=== PATIENT | male | born 1950 | race Caucasian/White ===

== ENCOUNTER → 2023-12-25 | Outpatient (CLI) | payer MEDICARE, BC, SELFPAY ==
--- NOTE | 2023-12-25 14:50 | CT_ITS ---
STUDY: CT CHEST WITH CONTRAST REASON FOR EXAM: Male, 73 years old. Paralysis of vocal cords and larynx, unilateral RADIATION DOSAGE (If Supplied By Facility): CTDIvol = ( 16.16 ) mGy, DLP = ( 705.79 ) mGycm TECHNIQUE: Transaxial imaging was performed following intravenous administration of IV 100mL Isovue-370. Multiplanar coronal and sagittal images were reformatted. Individualized dose optimization techniques were used for this CT. COMPARISON: No relevant priors. FINDINGS: CHEST Mild degree of emphysematous changes. There is no demonstrated pleural abnormality. There are calcifications of the coronary arteries. A left-sided dual-chamber pacemaker is seen. Normal mediastinum. Normal hilar regions. Normal unenhanced pulmonary arteries. There is atherosclerotic calcification of the aortic arch with tortuosity and elongation of the aortic arch and descending thoracic aorta. There are multi-level degenerative changes of the thoracic spine. Findings suggesting possible hemangioma of the mid and lower dorsal vertebrae. cardiac cord There is no demonstrated abnormality of the visualized upper abdomen. CT/Chest WITH Contrast IMPRESSION: Mild emphysematous changes. No acute abnormality is seen. Electronically Signed: Thom Garcia MD at 15:25 EST ,
--- NOTE | 2023-12-25 14:50 | CT_ITS ---
STUDY: CT SOFT TISSUE NECK WITH CONTRAST REASON FOR EXAM: Male, 73 years old. Paralysis of vocal cords and larynx, unilateral RADIATION DOSAGE (If Supplied By Facility): CTDIvol = ( 16.16 ) mGy, DLP = ( 705.79 ) mGycm TECHNIQUE: The patient was scanned in a multi-detector CT scanner. High resolution transaxial imaging was performed following intravenous administration of IV 100mL Isovue-370. Sagittal and coronal images were reconstructed. Individualized dose optimization techniques were used for this CT. COMPARISON: None. FINDINGS: Normal bilateral parotid glands. Normal bilateral anode rebuilder spaces. Normal bilateral parapharyngeal spaces. Normal bilateral carotid spaces. Atherosclerotic plaque formation of the carotid arteries and cavernous portions of the internal carotid arteries as well as the vertebral arteries bilaterally. Normal bilateral sublingual and submandibular glands and spaces. Normal visualized nasopharynx. Normal retropharyngeal space. Normal perivertebral space. Normal visualized bilateral faucial tonsils. The visualized tongue, tongue base and oropharynx are normal. The visualized cervical lymph nodes (levels I-) are within normal size limits, and maintain normal morphology. There is no demonstrated solid or cystic mass lesion. There is no abnormal contrast enhancement. Normal epiglottis, bilateral vallecula and hypopharynx. The pre-epiglottic and paraglottic adipose spaces are normal. Findings suggestive of a left vocal cord paralysis with the medial bowing. Normal subglottic trachea. Normal bilateral lobes of the thyroid gland. Normal visualized pulmonary apices. Normal visualized paranasal sinuses. Nasal septal deviation towards the right side of the midline. There is multilevel degenerative changes of the cervical spine. CT/Soft Tissue Neck WITH Contrast IMPRESSION: Findings in keeping with paralysis of the left vocal cord. Electronically Signed: Thom Garcia MD at 15:22 EST ,
[2023-12-25 15:07] LABS: CREATININE FINGERSTICK < 1.0 mg/dL (0.70-1.30); EGFR FINGERSTICK > 60.0000 mL/min (>60)
== END | disposition home or self-care (01) ==
LOC: CT 14:32
PROVIDERS: Referring Provider Otolaryngology; Visit Provider Otolaryngology
DX: J38.01 Paralysis of vocal cords and larynx, unilateral (principal)
CPT/HCPCS: 70491; 71260; Q9967

== ENCOUNTER → 2024-02-05 | Outpatient (CLI) | payer MEDICARE, BC, SELFPAY ==
[2024-02-05 16:16] LABS: Hematocrit 37.3 % (40-54); Hemoglobin 12.1 g/dL (13.0-16.5); Mean Corp Hgb Conc 32.4 g/dL (32-36); Mean Corpuscular Hgb 32.5 pg (27.0-32.0); Mean Corpuscular Volume 100.3 fL (80-94); Mean Platelet Vol. 10.6 fl (6.2-12.0); Platelet Count 158 K/mm3 (150-450); RBC Distribution Width CV 13.8 % (11.6-14.6); Red Blood Count 3.72 M/mm3 (4.6-6.2); White Blood Count 7.1 K/mm3 (4.4-11.0)
[2024-02-05 17:08] LABS: ALB/GLOB Ratio 1.2 RATIO (0.9-2.4); AST(SGOT) 46 U/L (15-37); Alanine Aminotransfer ALT/SGPT 62 U/L (16-61); Albumin, Serum 3.7 g/dL (3.2-5.0); Alkaline Phosphatase 69 U/L (45-117); Anion Gap 8 (5-15); BUN 25 mg/dL (7-18); BUN/Creat Ratio 27.4 RATIO (10-20); Calcium,Total 8.7 mg/dL (8.5-10.1); Chloride 103 mmol/L (98-107); Creatinine, Serum 0.91 mg/dL (0.70-1.30); EST Glomerular Filtration Rate 86 mL/min (>60); Est Glom Filt Rate - Afr Amer 104 mL/min (>60); Globulin 3.2 g/dL (2.2-4.2); Glucose 122 mg/dL (74-106); Potassium 4.1 mmol/L (3.5-5.1); Protein, Total 6.9 g/dL (6.4-8.2); Sodium Level 138 mmol/L (136-145)
== END | disposition home or self-care (01) ==
LOC: LAB 13:58
PROVIDERS: PCP Internal Medicine; Referring Provider Otolaryngology; Visit Provider Otolaryngology
DX: Z01.818 Encounter for other preprocedural examination (principal)
CPT/HCPCS: 36415; 80053; 85027

== ENCOUNTER 2024-02-09 06:25 | Day surgery (SDC) | payer MEDICARE, BC, SELFPAY ==
[2024-02-09] VITALS (10 sets, daily range): BP systolic 105–179; BP diastolic 48–76; PULSE 60–69; RESP 16–20; TEMP 35.9–36.8; O2SAT 91–99; BMI 24.0
--- OUTSIDE RECORDS SUMMARY | 2024-02-09 06:27 | XMS RPT_ITS | CCD ---
Author Name Unknown Address [address] [place] [address] Organization [facility] Care Team Providers Care Lead Systems Architect Name Role Phone Unavailable Primary Care Provider UnavailRick Mojica MD Unavailable [phone] DAYANA WOODSON Referring Unavailable RICK BELTRAN Referring Unavailable RICK BELTRAN Attending Unavailable LISSETTE REYES Referring Unavailable RICK BELTRAN Referring Unavailable RADHIKA REILLY Referring Unavailable YARELI KENNEDY Attending Unavailable Allergies Allergy Classification Reported Allergen(s) Allergy Type Date of Onset Reaction(s) Facility (8 sources) Codeine; Translations: [CODEINE] Drug Allergy 10-26-2010 [facility] Work Phone: Medications Completed/Discontinued Medications Medication Drug Class(es) Dates Sig (Normalized) Sig (Original) acetaminophen 500 mg oral tablet (5 sources) Start: 11-06-2019 take 2 tablets by mouth every six hours as needed acetaminophen (TYLENOL) 500 mg tablet Take 1,000 mg by mouth every 6 hours as needed. 0 11/06/2019 Active Problems Problem Classification Problem Date Documented Date Episodic/Chronic Cardiac dysrhythmias (1 source) Paroxysmal atrial fibrillation; Translations: [Paroxysmal A-fib (HCC)] Onset: 12-24-2023 Chronic Coronary atherosclerosis and other heart disease (1 source) Atherosclerotic heart disease of [place] coronary artery without angina pectoris; Translations: [Coronary artery disease, unspecified vessel or lesion type, unspecified whether angina present, unspecified whether [place] or transplanted heart] Onset: 12-24-2023 Chronic Other non-epithelial cancer of skin (2 sources) Intraepidermal squamous carcinoma of scalp; Translations: [Carcinoma in situ of skin of scalp and neck] Onset: 12-26-2023 12-26-2023 Episodic Unclassified (1 source) Acute cough; Translations: [Acute cough] Onset: 12-06-2023 Results Test Name Value Interpretation Reference Range Facil ity Vital Signs Date Time Vital Sign Value Performing Clinician Deniz lity 12-26-2023 11:19-0500 Diastolic blood pressure 49 mm[Hg] Yareli Kennedy MD Work Phone: [facility] 12-26-2023 11:19-0500 Heart rate 61 /min Yareli Kennedy MD Work Phone: [facility] 12-26-2023 11:19-0500 Systolic blood pressure 115 mm[Hg] Yareli Kennedy MD Work Phone: [facility] Encounters Encounter Date Encounter Type Care Provider Facility Start: 02-06-2024 End: 02-06-2024 ambulatory DAYANA CHINTAN Facility:[facility] Start: 01-22-2024 Follow-up encounter Rick axvier MD Work Phone: [facility] Start: 01-22-2024 Pacemaker Remote F/U Rick Zheng MD Work Phone: [facility] Department Start: 01-07-2024 E-mail encounter fro m caregiver Sanjay Ricci Ashley DO Work Phone: [facility] Start: 01-07-2024 Patient encounter procedure Sanjay Ramirez DO Work Phone: Cardiology Procedures Date Procedure Procedure Detail Performing Clinician Start: 01-22-2024 PACEMAKER REMOTE CHECK Rick Beltran MD Work Phone: Start: 07-14-2022 Lipid 1996 panel - S harvinder or Plasma Rick Beltran MD Work Phone: Plan of Treatment Date Care Activity Detail Author Start: 04-16-2028 Urine microalbumin profile DTa P,Tdap,Td Vaccine (3 - Td or Tdap) [facility] Start: 07-14-2027 Lipid panel Lipid Screening [facility] Start: 08-26-2026 Diabetes Screening Diabetes Screenin g [facility] Start: 06-21-2025 Pneumococcal Vaccine : 65+ (3 of 3 - PPSV23 or PCV20) Pneumococcal Vaccine: 65+ (3 of 3 - PPSV23 or PCV20) [facility] Start: 11-24-2023 Advance Directive Discussion Advance Directive Discussion [facility] Start: 11-24-2023 Depression Assessment Depression Ass essment [facility] Start: 07-25-2023 Covid-19 Vaccine ( season) Covid-19 Vaccine ( season) [facility] Start: 07-25-2023 Influenza vaccination Influenza Vacc ine (#1) [facility] Start: 11-24-2022 Advance Directive Discussion Advance Directive Discussion [facility] Start: 11-24-2022 Depression Assessment Depression Ass essment [facility] Start: 06-21-2021 Pneumococcal Vaccine : 65+ (4 of 4 - PPSV23 or PCV20) Pneumococcal Vaccine: 65+ (4 of 4 - PPSV23 or PCV20) [facility] Start: 10-26-2013 Diabetes Screening Diabetes Screenin g [facility] Start: 2013 Pneumococcal Vaccine : 65+ (1 - PCV) Pneumococcal Vaccine: 65+ (1 - PCV) [facility] Start: 2008 RSV Vaccine (1 - 1-d ose 60+ series) RSV Vaccine (1 - 1-dose 60+ series) [facility] Start: 1998 Shingrix Vaccine (1 of 2) Shingrix V accine (1 of 2) [facility] Start: 1993 Cologuard (FIT-DNA) Cologuard (FIT-D NA) [facility] Start: 1993 Colonoscopy Colonoscopy [facility] Start: 1993 Colorectal Cancer Screening Colorectal Cancer Screening [facility] Start: [address] COLONOGRAPHY [facility] Start: 1993 Fecal Occult Blood Fecal Occult Bloo d [facility] Start: 1993 Screening for malign ant neoplasm of colon [facility] Start: 1993 SIGMOIDOSCOPY SIGMOIDOSCOPY [facility] Start: 1983 Lipid 1996 panel - S harvinder or Plasma Lipid Screening [facility] Start: 1967 Shingrix Vaccine (1 of 2) Shingrix V accine (1 of 2) [facility] Start: 1967 Urine microalbumin profile DTa P,Tdap,Td Vaccine (1 - Tdap) [facility] Start: 1966 Hepatitis C Screening Hepatitis C [facility] Start: 1966 Hepatitis C screening Hepatitis C [facility] Start: 1948 Covid-19 Vaccine (#1) Covid-19 Vacci ne (#1) [facility] Payers Date Payer Category Payer Medicare [id number] 2013 Medicare MEDICARE MEDICAR E A AND B [id number] 2013-Present [phone] [place] [address] Medicare [id number] 2013 Medicare [id number] 2009 Unknown [id number] Social History Date Type Detail Facility Tobacco smoking stat [facility] Tobacco smoking consumption unknown [facility] Start: 1950 Sex Assigned At Not on file [facility] Start: 12-24-2023 End: 12-26-2023 Gender identity Not on file [facility] Start: 1950 Sex Assigned At Male C [facility] Start: 09-09-2023 Gender identity Identifies as male gender (finding) [facility] Start: 09-09-2023 Sexual orientation Heterosexual (fin annette) [facility] Start: 12-24-2023 Tobacco smoking stat RUSTIS Ex-smoker [facility] Work Phone: End: 11-24-1967 History of tobacco use Current smoker [facility] Work Phone: End: 11-24-1967 History of tobacco use Cigarette Smoker [facility] Work Phone: History of tobacco use Passive smoker [facility] Work Phone: Start: 12-24-2023 Tobacco use and exposure Smokeless tobacco non-user [facility] Work Phone: Start: 12-26-2023 Alcohol intake Ex-drinker (finding) [facility] Start: 12-24-2023 End: 12-26-2023 History of Social function [facility] National Score (1-10 0), lower number is lower risk 60 [facility] Clinical Notes 09-01-2023 to 12-30-2023 Telephone Encounter - Marbella Acuña - 12/30/2023 2:34 PM ESTPatient InstructionsTelephone Encounter - Kelsy Rashid - 12/26/2023 12:21 PM EST Note Date & Type Note Facility 12-30-2023 Miscellaneous Notes Outside EP. Dental Clearance. I have a copy @ my desk. Marbella Acuña documented in this encounter [facility] 12-26-2023 Instructions Patricia Henry RN - 12/26/2023 1:28 PM EST WOUND CARE INSTRUCTIONS FOR SECONDARY INTENTION HEALING WOUND CARE: The dressing you have been sent home with is called a pressure dressing. It should remain in place for 72 hours. To care for the wound: Remove pressure dressing after 72 hours. Tip: wet dressing in the shower to assist with adhesive removal. You can remove adhesive with soap, water, or alcohol pad. Clean with soap and water twice daily. After wound is thoroughly cleansed and dried, apply a thick layer of Bactroban/Mupirocin around the edge and in the wound. Do NOT use polysporin or neosporin Cover surgical site until healed with a bandage For legs and scalps, this may be 8 weeks or longer A type of packing called Gelfoam may be placed in the wound before you go home if so: Please leave the packing in place. Continue to do wound care above packing. The Gelfoam will dissolve and fall out over the course of a few days. Signs and symptoms of infection: Redness streaking away from the wound, swelling, new onset of pain, foul smelling drainage, pus, and generalized fevers/chills BLEEDING: Careful attention has been given to your wound to prevent bleeding. The initial dressing you have on is a pressure dressing to also help prevent bleeding. You may notice a small amount of blood on the edges of the dressing the first day; this is normal. In case of persistent bleeding: Apply firm, steady pressure over the dressing with gauze for 20 minutes. If bleeding persists, please apply pressure for another 30 minutes. Tip #1: use a timer to record the time of pressure held Tip #2: do not peek at wound until time is completed- this will disrupt clotting time of vessel Tip #3: you may also use ice, as this may aid in slowing any bleeding. 2. If bleeding persists, please call the office using the numbers below. We will instruct you on how to proceed. 3. The wound may drain heavily during the first few days. If so, please change the dressing more frequently. If the wound becomes inflamed, painful, or has a foul odor, please contact the Dermatology Department immediately PAIN: What pain can I expect after surgery? You can expect to have some pain after surgery. This is normal. The pain is typically worse for a day or two after surgery, and quickly begins to get better. Most patients are able to manage their pain after surgery with Kgxy-xkr-Iuitjtv (OTC) medications such as Tylenol (acetaminophen) and Motrin/Advil (ibuprofen). If you have a condition that does not allow you to take either of these medications, please notify us immediately. How will I manage my pain? The best strategy for controlling your pain after surgery is around the clock pain control with Tylenol (acetaminophen) and Motrin/Advil (ibuprofen). Alternating these medications with each other allows you to maximize your pain control. In addition to Tylenol and Motrin, you can use ice packs on your incisions for 20 minutes each hour for the first two days after surgery to help reduce your pain and swelling. After the first two days, you may use a heating pad or warm compress on your incisions and surrounding area. If you have received a graft, please *DO NOT* apply ice directly onto the graft site. How will I alternate my regular strength gbov-cet-slzihxz pain medication? You will take a dose of pain medication every four hours while you're awake. Start by taking 200-400 mg of Motrin/Advil (ibuprofen) (1-2 pills of 200 mg) 4 hours later, take 500-1000 mg of Tylenol (acetaminophen) (1-2 pills of 500 mg) 4 hours later, take 200-400 mg of Motrin/Advil (ibuprofen) (1-2 pills of 200 mg) 4 hours later, take 500-1000 mg of Tylenol (acetaminophen) (1-2 pills of 500 mg) 4 hours later, take 200-400 mg of Motrin/Advil (ibuprofen) (1-2 pills of 200 mg) We recommend that you follow this schedule sruabo-rxq-yassg for at least 3 days after surgery, or until you feel that it is no longer needed. As an alternative, you can purchase OTC Advil Dual Action, which is a combined pill containing Acetaminophen 250mg and Ibuprofen 125mg. IMPORTANT: Do not take more than 3000mg of Tylenol (acetaminophen) or 3200mg of Motrin/Advil (ibuprofen) in a 24-hour period. Be aware that some chronic pain medications as well as over the counter cold and flu remedies may also contain acetaminophen. Take this into consideration to avoid exceeding the maximum daily dose. Limit alcohol intake. It is recommended to avoid heavy alcohol intake (more than two standard drinks per day for men and one standard drink for women) after surgery and while taking acetaminophen. Drinking alcohol causes the liver to convert more of the acetaminophen you take into toxic byproducts. Alcohol also acts as a blood thinner and can increase your risk for post-operative bleeding. Continue to take all of your prescribed medication. SWELLING: Swelling after surgery is normal and can peak at 48hr after surgery Suggestion: sleep on 1-2 pillows post procedure for 2-3 days to minimize swelling You can do this if you had a procedure on your face, top of head, ears, jaw, eyes, nose, cheeks, etc. Elevate arms and legs at rest to decrease swelling You can wrap your affected extremity by using YEFRI wrap, coban wrap, or compression stockings to also minimize swelling Please also use ice to decrease swelling. Can use approximately 20 minutes each hour. NOTES: You may have a low-grade fever (99-100 degrees F) for which Tylenol may be used. You may shower regularly after your initial surgery dressing is removed. Continue daily wound care. Return to referring elevator conductor for skin checks every 6 months PHONE NUMBERS: [place] contact number: [phone], [phone], or [phone] (Friday-Friday, 8am-5pm) For emergencies only: On-call number: [phone] and ask for the representative government relations dermatology surgery fellow documented in this encounter [facility] 12-26-2023 Note HNO ID: [id number] Author: YARELI KENNEDY MD Service: ? Author Type: Physician Type: Progress Notes Filed: 01/01/2024 15:16 Note Text: DERMATOLOGY CONSULT FOR MOHS SERVICE DATE: 12/26/2023 PRIMARY CARE PHYSICIAN: No primary care provider on file. REFERRING PROVIDER: Caity Matthews MD [place] [phone] Consultation requested for an opinion regarding the evaluation and treatment of skin cancer. My final impression and recommendations will be communicated back to the requesting physician by way of the shared medical record or letter via [place] mail. SUBJECTIVE CHIEF COMPLAINT: SCC HISTORY OF PRESENT ILLNESS BIOPSY INFORMATION: 1. 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 Report Number: Outside Pathology [id number] Date Performed: 08-25-23 Performed By: Outside Provider Past Treatment: No Past Treatment Tumor Type: Primary Present For: 1 years(s) Signs AND Symptoms: scabbing and bleeding PAST DERM HISTORY: SCC BCC FAMILY HISTORY: Non-Melanoma Skin Cancer PAST MEDICAL HISTORY Diagnosis Date Atrial fibrillation (HCC) CAD (coronary artery disease) Crohn's disease (HCC) Diffuse large B cell lymphoma (HCC) History of deep vein thrombosis HLD (hyperlipidemia) HTN (hypertension) NSTEMI (non-ST elevated myocardial infarction) (HCC) 10/2019 Seizure disorder (HCC) PAST SURGICAL HISTORY Procedure Laterality Date ANESTH,PACEMAKER INSERTION 05/24/2020 CABG (2) VEIN GRAFTS AND ARTERIAL GRAFT(S 10/2019 PAST SURGICAL HISTORY OF surgery for Crohn's TOTAL HIP REPLACEMENT Right Social History Tobacco Use Smoking status: Former Types: Cigarettes Quit date: 1968 Years since quittin.1 Passive exposure: Past Smokeless tobacco: Never Vaping Use Vaping Use: Never used Substance Use Topics Alcohol use: Not Currently Drug use: Never FAMILY HISTORY Problem Relation Age of Onset Emphysema Mother Cancer Father ALLERGIES Allergen Reactions Codeine Rash MEDICATIONS: metoprolol succinate ER (TOPROL XL) 25 mg 24 hr tablet Take 1 tablet by mouth once daily. acetaminophen (TYLENOL) 500 mg tablet Take 1,000 mg by mouth every 6 hours as needed. adalimumab (HUMIRA) 40 mg/0.8 mL injection Inject 40 mg subcutaneously one time a week. allopurinol (ZYLOPRIM) 300 mg tablet Take 1 tablet by mouth every afternoon. amiodarone (PACERONE) 200 mg tablet Take 0.5 tablets by mouth every afternoon. aspirin 81 mg chewable tablet Take 81 mg by mouth once daily. atorvastatin (LIPITOR) 20 mg tablet Take 20 mg by mouth daily at bedtime. cholecalciferol (VITAMIN D3) 1,000 unit tab tablet Take 25 mcg by mouth. CHOLESTYRAMINE LIGHT 4 gram packet MIX AND DRINK 1 PACKET BY MOUTH TWICE DAILY WITH MEALS cyanocobalamin 1,000 mcg/mL INJECT 1ML UNDER THE SKIN ONCE A MONTH dutasteride (AVODART) 0.5 mg capsule Take 1 capsule by mouth every afternoon. furosemide (LASIX) 20 mg tablet Take 20 mg by mouth once daily. isosorbide mononitrate ER (IMDUR) 60 mg 24 hr tablet Take 1 tablet by mouth every afternoon. levETIRAcetam (KEPPRA) 500 mg tablet Take 1 tablet by mouth every 12 hours. nitroglycerin sublingual (NITROQUICK) 0.4 mg SL tablet Dissolve 0.4 mg under the tongue. XARELTO 20 mg tablet Take 20 mg by mouth daily with dinner. tamsulosin (FLOMAX) 0.4 mg Take 2 capsules by mouth every afternoon. ANTICOAGULANTS: ASA Xarelto PT INR Date Value Ref Range Status 10/26/2010 1.07 Final Comment: PT REAGENT WITH CARMEN CLOSE TO 1.0 IN USE. INR MUST BE USED IN MONITORING THERAPY. MEDICAL CONDITIONS: Heart Disease, Hypertension IMPLANTED DEVICES: Pacemaker and Artificial Joints- right hip TRANSPLANT PATIENT: No OBJECTIVE REVIEW OF SYSTEMS: Patient denies fatigue, fever, weight loss, shortness of breath and chest pain. ASSESSMENT PHYSICAL EXAM There were no vitals taken for this visit. GENERAL: Well developed, well nourished. No acute distress. Pleasant and cooperative. No Fatigue or malaise. SKIN: erythematous, irregular crusted plaque on vertex scalp PHOTOS: Photos taken with consent. PLAN IMPRESSION: The etiology, prognosis, and diagnosis of the skin cancer was discussed with the patient. Various treatment options were reviewed, including, but not limited to electrodessication and curretage, excision, radiation treatment, frozen sections and Mohs surgery. Risks, benefits and alternatives discussed with the patient, including but not limited to bleeding, infection, nerve damage, damage to underlying structures, wound dehiscence, scarring and recurrence. The patient was given opportunity to ask questions, consents to treatment, and agrees to proceed the following treatment plan. 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 [facility] 12-26-2023 Miscellaneous Notes Patient returned call scheduled and scheduled for 02/12/24 with echo prior to visit and completing labs. Please advise patient if any further testing is needed prior to visit. First attempt at contacting patient, left VM to schedule new patient appt with strip mine supervisor in [place] ----- Message from Rick Beltran MD sent at 12/24/2023 4:24 PM EST ----- want to get this pt established with cardiology - Efraín ramirez or Enriqueta for h/o CAD s/p CABG and an iCM - last EF 30%. Just moved to [place] Needs updated TTE before or near the time of the visit. Order in Elic thanks Rick documented in this encounter [facility] 12-26-2023 History of Present illness Narrative DERMATOLOGY CONSULT FOR MOHS SERVICE DATE: 12/26/2023 PRIMARY CARE PHYSICIAN: No primary care provider on file. REFERRING PROVIDER: Caity Matthews MD [facility] [address] [address] Consultation requested for an opinion regarding the evaluation and treatment of skin cancer. My final impression and recommendations will be communicated back to the requesting physician by way of the shared medical record or letter via [place] mail. SUBJECTIVE CHIEF COMPLAINT: SCC HISTORY OF PRESENT ILLNESS BIOPSY INFORMATION: 1. 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 Report Number: Outside Pathology [id number] Date Performed: 08-25-23 Performed By: Outside Provider Past Treatment: No Past Treatment Tumor Type: Primary Present For: 1 years(s) Signs & Symptoms: scabbing and bleeding PAST DERM HISTORY: SCC BCC FAMILY HISTORY: Non-Melanoma Skin Cancer PAST MEDICAL HISTORY Diagnosis Date Atrial fibrillation (HCC) CAD (coronary artery disease) Crohn's disease (HCC) Diffuse large B cell lymphoma (HCC) History of deep vein thrombosis HLD (hyperlipidemia) HTN (hypertension) NSTEMI (non-ST elevated myocardial infarction) (HCC) 10/2019 Seizure disorder (HCC) PAST SURGICAL HISTORY Procedure Laterality Date ANESTH,PACEMAKER INSERTION 05/24/2020 CABG (2) VEIN GRAFTS & ARTERIAL GRAFT(S 10/2019 PAST SURGICAL HISTORY OF surgery for Crohn's TOTAL HIP REPLACEMENT Right Social History Tobacco Use Smoking status: Former Types: Cigarettes Quit date: 1968 Years since quittin.1 Passive exposure: Past Smokeless tobacco: Never Vaping Use Vaping Use: Never used Substance Use Topics Alcohol use: Not Currently Drug use: Never FAMILY HISTORY Problem Relation Age of Onset Emphysema Mother Cancer Father ALLERGIES Allergen Reactions Codeine Rash MEDICATIONS: metoprolol succinate ER (TOPROL XL) 25 mg 24 hr tablet Take 1 tablet by mouth once daily. acetaminophen (TYLENOL) 500 mg tablet Take 1,000 mg by mouth every 6 hours as needed. adalimumab (HUMIRA) 40 mg/0.8 mL injection Inject 40 mg subcutaneously one time a week. allopurinol (ZYLOPRIM) 300 mg tablet Take 1 tablet by mouth every afternoon. amiodarone (PACERONE) 200 mg tablet Take 0.5 tablets by mouth every afternoon. aspirin 81 mg chewable tablet Take 81 mg by mouth once daily. atorvastatin (LIPITOR) 20 mg tablet Take 20 mg by mouth daily at bedtime. cholecalciferol (VITAMIN D3) 1,000 unit tab tablet Take 25 mcg by mouth. CHOLESTYRAMINE LIGHT 4 gram packet MIX AND DRINK 1 PACKET BY MOUTH TWICE DAILY WITH MEALS cyanocobalamin 1,000 mcg/mL INJECT 1ML UNDER THE SKIN ONCE A MONTH dutasteride (AVODART) 0.5 mg capsule Take 1 capsule by mouth every afternoon. furosemide (LASIX) 20 mg tablet Take 20 mg by mouth once daily. isosorbide mononitrate ER (IMDUR) 60 mg 24 hr tablet Take 1 tablet by mouth every afternoon. levETIRAcetam (KEPPRA) 500 mg tablet Take 1 tablet by mouth every 12 hours. nitroglycerin sublingual (NITROQUICK) 0.4 mg SL tablet Dissolve 0.4 mg under the tongue. XARELTO 20 mg tablet Take 20 mg by mouth daily with dinner. tamsulosin (FLOMAX) 0.4 mg Take 2 capsules by mouth every afternoon. ANTICOAGULANTS: ASA Xarelto PT INR Date Value Ref Range Status 10/26/2010 1.07 Final Comment: PT REAGENT WITH CARMEN CLOSE TO 1.0 IN USE. INR MUST BE USED IN MONITORING THERAPY. MEDICAL CONDITIONS: Heart Disease, Hypertension IMPLANTED DEVICES: Pacemaker and Artificial Joints- right hip TRANSPLANT PATIENT: No OBJECTIVE REVIEW OF SYSTEMS: Patient denies fatigue, fever, weight loss, shortness of breath and chest pain. ASSESSMENT PHYSICAL EXAM There were no vitals taken for this visit. GENERAL: Well developed, well nourished. No acute distress. Pleasant and cooperative. No Fatigue or malaise. SKIN: erythematous, irregular crusted plaque on vertex scalp PHOTOS: Photos taken with consent. PLAN IMPRESSION: The etiology, prognosis, and diagnosis of the skin cancer was discussed with the patient. Various treatment options were reviewed, including, but not limited to electrodessication and curretage, excision, radiation treatment, frozen sections and Mohs surgery. Risks, benefits and alternatives discussed with the patient, including but not limited to bleeding, infection, nerve damage, damage to underlying structures, wound dehiscence, scarring and recurrence. The patient was given opportunity to ask questions, consents to treatment, and agrees to proceed the following treatment plan. 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 Mohs closure types were discussed with patient. May consider primary, 2nd intention, or purse- string closure closure. Indications for Mohs Surgery include: Anatomic Location where lesion is prone to recur, Type of tumor, and Ill-defined borders Mohs AUC Score is 7-9 = Appropriate [X] Wound care instructions given. The documentation for this note was completed by Patricia Henry RN acting as scribe for Yareli Kennedy MD. December 26, 2023 11:17 AM. SIGNATURE: Yareli Kennedy MD PATIENT NAME: Pavel Quiñones DATE: December 26, 2023 TIME: 1:44 PM PAGER/CONTACT #: [id number] MICROGRAPHIC OPERATIVE REPORT SERVICE DATE: 12/26/2023 SERVICE TIME: 11:17 AM LOCATION: { [place]:[facility] REFERRING PROVIDER: Radhika Reilly [address] [facility] [id number] PROCEDURE START TIME: 1130 am PROCEDURE END TIME: 1:50 PM SURGEON: Dr. Yareli Kennedy FELLOW: Dr. Stephy Sharpe REGISTERED NURSE: Patricia Henry RN ANTICOAGULANTS: ASA Xarelto IMPLANTED DEVICES: Pacemaker and Artificial Joints- right hip replaced 12 years ago ANTIBIOTIC PROPHYLAXIS: Not required TRANSPLANT PATIENT: No PHOTOS: Photos taken VERIFICATION OF PROCEDURE: Procedure to be Performed: Mohs Surgery Patient Verified By: Name and Date of Site(s) Confirmed: Patient confirmed site from image in the EMR. Patient verbalized agreement of surgical site(s). Site(s) Marked: Provider marking the site with patient involvement. Relevant documentation, images, implants or special equipment present: Yes SIGN IN COMMUNICATION: Completed Time Out: Team Confirms the Correct Patient, Correct Procedure, Correct Site(s) and Site Marked, Correct Position (if applicable). Time: 1146 am Affirmation of Time Out: Yes Sign out Discussion: Completed UNIVERSAL PROTOCOL / SAFETY CHECKLIST Procedure to be Performed: mohs Sign In: A Moment of CARE was completed. Personnel directly involved with the procedure wore the appropriate PPE (Personal Protective Equipment). Patient/Surrogate Stated/Verified: PATIENT VERIFIED(optional for EMERGENT procedures): Patient name, Date of , Relevant allergies, and The intended procedure Time Out Communication: Intended patient and procedure match the source documents. Consent documented and matches the intended procedure. Sign Out: SIGN OUT (optional for EMERGENT procedures): All specimen containers correctly labeled. Post-procedure follow-up management communicated and Plan of Care Visit completed when applicable. 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 Anesthesia was obtained with local infiltration. The clinically apparent tumor was then debulked with a curette. A 1-2 mm rim of tissue was marked circumferentially around the defect. The area thus outlined was excised deep to the subcutis. Hemostasis was achieved with electrocautery. The specimen was oriented, subdivided into 2 sections, chromacoded and submitted for horizontal frozen sections. The patient tolerated the procedure well and no complications were noted. Upon review of the horizontal frozen sections for Layer A, no residual tumor was identified . Pt will follow up with efudex to scalp once healed CLOSURE Rationale for Second Intention Healing: Given the large size and superficial nature of the defect, the defect was allowed to heal by secondary intent. A running locked 5-0 fast suture was placed around the periphery to minimize bleeding and shrink the defect by appx 20% Diagnosis: Surgical defect secondary to Mohs micrographic surgery on a Primary tumor type from right vertex (location of tumor). Post-op Defect Size: 2.3 x 3.2cm PARTIAL CLOSURE: Given the lack of redundant tissue surrounding the defect, part of the wound was allowed to heal by secondary intention. Part of the wound was closed with a running locked suture to peripheral edges and wound base. The wound edges were secured with 5-0 Absorbable running locked sutures Final Size: 3 x 1.7 cm 2 SCC Staging In situ LOCAL ANESTHETIC: 5cc 1% Lidocaine HCl with Epinephrine 1:100,000 and 2cc 0.5% Bupivacaine HCl ESTIMATED BLOOD LOSS: Less Than Minimal Unless Noted Here. COMPLICATIONS: None, patient tolerated procedure well. TOTAL OPERATIVE TIME: 140 Minutes POST OP MEDS: Tylenol 1000 mg every 8 hours as needed for pain relief Mupirocin ointment POST OP CARE: Pressure Dressing applied consisting of Contact Layer: Antibiotic ointment, Non stick Telfa pad, and gelfoam to wound base Absorbent Layer: Gauze pad Liquid Adhesive to surrounding skin to adhere dressing. Outer Layer: Hypafix MOHS POST OP INSTRUCTIONS GIVEN WITH VERBAL UNDERSTANDING: Yes PATIENT DISCHARGED TO CREATIVE RECRUITER/NAME: spouse FOLLOW UP: 3 weeks e- visit and 6 week post op to prescribe Efudex The documentation for this note was completed by Patricia Henry RN acting as scribe for Yareli Kennedy MD. December 26, 2023 1:55 PM. I served as the fellow in this case under supervision of the attending surgeon. I prepped the patient and interpreted the slides. I took the Mohs layer Stephy Sharpe MD Micrographic Surgery & Dermatologic Oncology Fellow Fellow took the layer(s), under direct supervision and the remainder of the procedure was performed by the primary surgeon/proceduralist with assistance. I/primary surgeon/proceduralist reviewed the specimen(s) and worked as the pathologist. I have seen and examined Pavel Quiñones. I have discussed the case and the management of this patient's care with the Fellow. I also have reviewed and agree with the assessment and plan as stated above and agree with all of its relevant components. I was present for and supervised the procedures as documented above by the Fellow. I was physically present during the critical portion(s) of this procedure. I agree with the operative note independently gathered by the clinical desktop support associate and the remaining scribed note accurately describes my personal service to the patient. I/primary surgeon/proceduralist reviewed the specimen(s) and worked as the pathologist. Yareli Kennedy MD January 01, 2024 Yareli Kennedy MD documented in this encounter [facility] 12-24-2023 Note HNO ID: [id number] Author: RICK BELTRAN MD Service: ? Author Type: Physician Type: Progress Notes Filed: 12/24/2023 18:19 Note Text: [facility] Department of Cardiovascular Medicine SECTION OF CARDIAC PACING and ELECTROPHYSIOLOGY OUTPATIENT VISIT DATE December 24, 2023 OUTPATIENT VISIT TYPE NEW PRIMARY CARE PHYSICIAN: To use this Smartlink, specify the provider ID whose address you want to display, e.g., .PROVADDR[1 (where 1 is the provider ID). REFERRING PHYSICIAN: Lissette Reyes MD [address] [place] [id number] NURSING INTAKE HISTORY: Mr. Quiñones is a 73 year old male who presents today for evaluation of atrial fibrillation. He has a past medical history of NSTEMI 10/2019, CAD s/p CABG x 2 10/2019, Crohn's disease, diffuse large B-cell lymphoma, hypertension, hyperlipidemia, lone seizure x 1, DVT s/p inferior vena cava filter, s/p PPM 05/24/20, and AF s/p DCC's x 6. He had an NSTEMI in October 2019 and underwent CABG and EVE 2 days later. He developed postoperative atrial fibrillation which was newly diagnosed. Per outside notes, AF was challenging to control, and he underwent 5 cardioversions over the next 5-6 months. He was started on amiodarone during that time period. Review of outside records indicate he underwent pacemaker implant 05/24/2020 because AF was difficult to control. He did well without recurrence, maintained on amiodarone, until 08/2023. He has never had an ablation. He had persistent AF starting late May 2023 in the setting of a viral illness. He underwent LUIS-guided DCC 08/2023. He had increased leg swelling and in August 2023 and had an echo, which showed EF decreased to 35%, with severe TR, moderate to severe MR, and Severe bi-atrial enlargement. Previous echo 09/2022 showed normal LVEF. He is maintained on amiodarone 100 mg daily, metoprolol, and Xarelto. He moved to [facility] in September to be closer to children. He has not recurrent AF since the DCC. He feels poorly overall since August 2023, with weakness in legs, fatigued and low energy, some ARROYO. He never had a sleep study. He is active around the house. Patient denies chest pain, orthopnea, cough, edema, palpitations, PND, dizziness, lightheadedness, nearsyncope, or syncope. [id number] score: 5 (congestive heart failure, hypertension, age >/=75, vascular disease) - on Xarelto DUAL LEAD PACEMAKER EVALUATION PRESENTS FOR: OPD with Dr. Beltran, new to [facility] device clinic PRESENTING EGM: AP/VS UNDERLYING RHYTHM: Sinus Bradycardia with PVC. BATTERY STATUS: Estimated time remaining to POWER is 10.5 years. COUNTERS SINCE: 09/17/23 (interrogated back further) ATRIAL ARRHYTHMIAS: There were several triggered episodes of atrial high rates dated on 07/01 and 07/02 with EGMs showing AFL/AF. Per AT/AF burden graph, patient was in AF 100% of the time June-August to which patient said he had a local DCCV. Total time <0.1%. Anticoagulants listed: Xarelto VENTRICULAR ARRHYTHMIAS: There has been 1 nsVT detection confirmed by EGM within the last year. LEAD MEASUREMENTS: Capture and sensing are appropriate. The pacing outputs maintain safety margin. Review of the lead impedance trends are normal. IMPLANT SITE/ SYMPTOMS: The incision and pocket are pain-free (0/10), well healed and without signs of erosion or infection. No arm swelling, syncope, pre-syncope or device related pocket stimulation. OTHER DIAGNOSTICS: RA pacing 95.3%, Total V pacing 0.3% PROGRAMMING CHANGES MADE TODAY: None. FOLLOW UP: Request sent to patient's local clinic to release remotes. Patient wishes to follow at [facility]. Caity Stevenson RN PAST MEDICAL HISTORY Diagnosis Date Atrial fibrillation (HCC) CAD (coronary artery disease) Crohn's disease (HCC) Diffuse large B cell lymphoma (HCC) History of deep vein thrombosis HLD (hyperlipidemia) HTN (hypertension) NSTEMI (non-ST elevated myocardial infarction) (HCC) 10/2019 Seizure disorder (HCC) PAST SURGICAL HISTORY Procedure Laterality Date ANESTH,PACEMAKER INSERTION 05/24/2020 CABG (2) VEIN GRAFTS AND ARTERIAL GRAFT(S 10/2019 PAST SURGICAL HISTORY OF surgery for Crohn's TOTAL HIP REPLACEMENT Right SOCIAL HISTORY Social History Tobacco Use Smoking status: Former Types: Cigarettes Quit date: 1968 Years since quittin.1 Passive exposure: Past Smokeless tobacco: Never Vaping Use Vaping Use: Never used Substance Use Topics Alcohol use: Not Currently Drug use: Never FAMILY HISTORY Problem Relation Age of Onset Emphysema Mother Cancer Father ALLERGIES: ALLERGIES Allergen Reactions Codeine Rash MEDICATIONS: acetaminophen (TYLENOL) 500 mg tablet Take 1,000 mg by mouth every 6 hours as needed. adalimumab (HUMIRA) 40 mg/0.8 mL injection Inject 40 mg subcutaneously one time a week. allopurinol (ZYLOPRIM) 300 mg tablet Take 1 tablet by mouth every afternoon. ami (more content not included)... [facility] 12-10-2023 Note HNO ID: [id number] Author: OSMEL HERRERA APRN.AUTO DAMAGE TRAINEE Service: ? Author Type: Nurse Practitioner Type: Progress Notes Filed: 12/10/2023 16:01 Note Text: This note was created using [employer]. Subjective Pavel Quiñones is a 73 year old male. 73 year old male with PMH of atrial fibrillation, pneumonia in September 2023, and Chron's disease on Humira. Presents today with acute onset cough, rhinorrhea, and sore throat for two weeks. Pertinent positives include productive cough with thick clear sputum, sore throat worse with swallowing, rhinorrhea with clear drainage, chest tightness with cough, hoarse voice for 2 weeks, and SOB resolved with albuterol inhaler BID which he was prescribed in September when he had pneumonia. Pertinent negatives include fever, fatigue, decreased appetite, nausea, vomiting, diarrhea, ear drainage, and eye drainage. He was seen here a few days RESPIRATORY ASSISTANT for same Just still here The history is provided by the patient. Cough This is a new problem. The current episode started more than 1 week ago. The problem occurs constantly. The problem has been gradually worsening. The cough is Productive of sputum (clear thick). There has been no fever. Associated symptoms include weight loss, rhinorrhea, sore throat and shortness of breath. Pertinent negatives include no chest pain, no chills, no ear congestion, no ear pain, no myalgias and no wheezing. Associated symptoms comments: Has lost 8 pounds in the last 2 months but believes this is due to the business of his life lately. Treatments tried: salt water gargles. The treatment provided no relief. He is not a smoker. His past medical history is significant for pneumonia. His past medical history does not include bronchitis, COPD, emphysema or asthma. Was seen in [facility] 5 days ago which he was diagnosed with bacterial sinusitis and prescribed doxycycline. He has been taking this for 5 days. No past medical history on file. No past surgical history on file. ALLERGIES Codeine MEDICATIONS acetaminophen (TYLENOL) 500 mg tablet Take 1,000 mg by mouth every 6 hours as needed. adalimumab (HUMIRA) 40 mg/0.8 mL injection Inject 40 mg subcutaneously. albuterol HFA (PROVENTIL HFA, VENTOLIN HFA) 90 mcg/actuation inhaler Inhale 2 Puffs as instructed. allopurinol (ZYLOPRIM) 300 mg tablet Take 1 tablet by mouth every afternoon. amiodarone (PACERONE) 200 mg tablet Take 0.5 tablets by mouth every afternoon. aspirin 81 mg chewable tablet Take 81 mg by mouth. atorvastatin (LIPITOR) 20 mg tablet Take 20 mg by mouth daily at bedtime. cholecalciferol (VITAMIN D3) 1,000 unit tab tablet Take 25 mcg by mouth. CHOLESTYRAMINE LIGHT 4 gram packet MIX AND DRINK 1 PACKET BY MOUTH TWICE DAILY WITH MEALS cyanocobalamin 1,000 mcg/mL INJECT 1ML UNDER THE SKIN ONCE A MONTH dutasteride (AVODART) 0.5 mg capsule Take 1 capsule by mouth every afternoon. ergocalciferol 50,000 unit capsule (VITAMIN D2, DRISDOL) Take 50,000 Units by mouth one time a week. furosemide (LASIX) 20 mg tablet isosorbide mononitrate ER (IMDUR) 60 mg 24 hr tablet Take 1 tablet by mouth every afternoon. levETIRAcetam (KEPPRA) 500 mg tablet Take 1 tablet by mouth every 12 hours. metoprolol succinate ER (TOPROL XL) 25 mg 24 hr tablet nitroglycerin sublingual (NITROQUICK) 0.4 mg SL tablet Dissolve 0.4 mg under the tongue. XARELTO 20 mg tablet Take 20 mg by mouth daily with dinner. sildenafil (VIAGRA) 100 mg tablet Take 100 mg by mouth at bedtime as needed. tamsulosin (FLOMAX) 0.4 mg Take 2 capsules by mouth every afternoon. doxycycline (VIBRA-TABS) 100 mg tablet Take 1 tablet by mouth two times a day for 7 days. predniSONE (DELTASONE) 10 mg tablet Take 4 tabs daily for 3 days, then 2 tabs daily for 3 days, then 1 tab daily for 3 days with food. LAMICTAL 25 mg ORAL tablet take as instructed up to 100 mg twice a day (Patient not taking: Reported on 12/06/2023) LAMICTAL 100 mg ORAL tablet take as instructed up to 100 mg twice a day (Patient not taking: Reported on 12/06/2023) No family history on file. Social History Tobacco Use Smoking status: Former Types: Cigarettes Passive exposure: Past Smokeless tobacco: Never Review of Systems Constitutional: Positive for weight loss. Negative for appetite change, chills, fatigue, fever and unexpected weight change. HENT: Positive for congestion, rhinorrhea and sore throat. Negative for ear discharge, ear pain, sinus pressure and sinus pain. Eyes: Negative for discharge. Respiratory: Positive for cough, chest tightness and shortness of breath. Negative for wheezing and stridor. Cardiovascular: Negative for chest pain. Gastrointestinal: Negative for abdominal pain, diarrhea, nausea and vomiting. Musculoskeletal: Negative for arthralgias and myalgias. Objective BP 104/68 Pulse 80 Temp 36.1 ?C (96.9 ?F) Resp 21 Wt 74.1 kg (163 lb 6.4 oz) SpO2 99% Physical Exam Constitutional: General: (more content not included)... [facility] 12-06-2023 Note HNO ID: [id number] Author: CHECO KELLEY RT(R) Service: ? Author Type: Bleaching Machine Operator Type: Progress Notes Filed: 12/06/2023 11:27 Note Text: Radiology Service Progress Note PATIENT NAME: Pavel Quiñones DATE OF SERVICE: December 06, 2023 TIME: 11:20 AM PATIENT IDENTITY VERIFICATION COMPLETED USING TWO (2) IDENTIFIERS: Name and Date of confirmed by patient verbally. FALL SCREENING: Has the patient had 2 falls in the last year or 1 fall with injury or currently using an Ambulatory Assistive Device (Walker, Cane, Wheelchair, Crutches, etc.)? No PATIENT GENDER DATA: Male PATIENT RELEVANT IMPLANT DATA REVIEWED: Yes RADIOLOGY DEPARTMENT: General X-ray: Exam(s) Completed: Chest X-Ray PERIPHERAL IV DATA: Not applicable SIGNED BY: RT Carley(R) December 06, 2023 11:20 AM [facility] 12-06-2023 Note HNO ID: [id number] Author: DAYANA WOODSON APRN.AUTO DAMAGE TRAINEE Service: ? Author Type: Nurse Practitioner Type: Progress Notes Filed: 12/06/2023 12:07 Note Text: CC: Patient presents with: Cough: Cough, head and chest congestion, ST x 1 week HPI: Pavel Quiñones is a 73 year old male who presents to the office with complaint of chest congestion, head congestion, cough, nonproductive, sore throat, and sinus symptoms for 2 weeks. Symptoms are worsening Associated symptoms includes sore throat, nasal congestion, and facial pain/pressure. Denies nausea, vomiting , and diarrhea. Treatments tried include nothing so far. with no relief of symptoms. Sick contacts: unknown. History of asthma, frequent episodes of bronchitis, chronic bronchitis, bronchiectasis or COPD: history of pneumonia Smoker: No Seasonal/environmental allergies: No The ROS is otherwise negative. The patient's pmh, medications, allergies, and past visits are reviewed. PHYSICAL EXAM: BP 110/74 Pulse 60 Temp 36.2 ?C (97.1 ?F) (Tympanic) Resp 18 Wt 74.5 kg (164 lb 3.2 oz) SpO2 98% General appearance: alert, cooperative, pleasant, in no acute distress Head: Normocephalic Eyes: EOM's intact, conjunctiva pink and moist, no icterus, sclera white, non-injected Ears: Right ear: External ear/canal- Normal, TM - clear with good landmarks. Left ear: External ear/canal- Normal, TM - clear with good landmarks Oropharynx:mild erythema, without exudates present Heart: Negative. RRR without obvious murmur, gallop, or rubs. No ectopy. Lungs: clear to auscultation, without rales or wheeze, good air exchange No past medical history on file. No past surgical history on file. ALLERGIES Codeine MEDICATIONS acetaminophen (TYLENOL) 500 mg tablet Take 1,000 mg by mouth every 6 hours as needed. adalimumab (HUMIRA) 40 mg/0.8 mL injection Inject 40 mg subcutaneously. albuterol HFA (PROVENTIL HFA, VENTOLIN HFA) 90 mcg/actuation inhaler Inhale 2 Puffs as instructed. allopurinol (ZYLOPRIM) 300 mg tablet Take 1 tablet by mouth every afternoon. amiodarone (PACERONE) 200 mg tablet Take 0.5 tablets by mouth every afternoon. aspirin 81 mg chewable tablet Take 81 mg by mouth. atorvastatin (LIPITOR) 20 mg tablet Take 20 mg by mouth daily at bedtime. cholecalciferol (VITAMIN D3) 1,000 unit tab tablet Take 25 mcg by mouth. CHOLESTYRAMINE LIGHT 4 gram packet MIX AND DRINK 1 PACKET BY MOUTH TWICE DAILY WITH MEALS cyanocobalamin 1,000 mcg/mL INJECT 1ML UNDER THE SKIN ONCE A MONTH dutasteride (AVODART) 0.5 mg capsule Take 1 capsule by mouth every afternoon. ergocalciferol 50,000 unit capsule (VITAMIN D2, DRISDOL) Take 50,000 Units by mouth one time a week. furosemide (LASIX) 20 mg tablet isosorbide mononitrate ER (IMDUR) 60 mg 24 hr tablet Take 1 tablet by mouth every afternoon. levETIRAcetam (KEPPRA) 500 mg tablet Take 1 tablet by mouth every 12 hours. metoprolol succinate ER (TOPROL XL) 25 mg 24 hr tablet nitroglycerin sublingual (NITROQUICK) 0.4 mg SL tablet Dissolve 0.4 mg under the tongue. XARELTO 20 mg tablet Take 20 mg by mouth daily with dinner. sildenafil (VIAGRA) 100 mg tablet Take 100 mg by mouth at bedtime as needed. tamsulosin (FLOMAX) 0.4 mg Take 2 capsules by mouth every afternoon. LAMICTAL 25 mg ORAL tablet take as instructed up to 100 mg twice a day (Patient not taking: Reported on 12/06/2023) LAMICTAL 100 mg ORAL tablet take as instructed up to 100 mg twice a day (Patient not taking: Reported on 12/06/2023) No family history on file. ASSESSMENT/PLAN: 1. Acute cough - ICD9: 786.2, ICD10: R05.1 (primary diagnosis) - XR CHEST 2V FRONTAL/LAT * * * * Physician Interpretation * * * * EXAMINATION: CHEST RADIOGRAPH (2 VIEW FRONTAL AND LATERAL) CLINICAL HISTORY: Acute cough MQ: [id number] EXAM DATE/TIME: 12/06/2023 11:28 AM COMPARISON: No relevant prior studies available. RESULT: Lines, tubes, and devices: A left pacemaker is in place. Lungs and pleura: No consolidation. No lung mass. No pleural effusion. No pneumothorax. Cardiomediastinal silhouette: The patient is status post median sternotomy. Bones and soft tissues: Unremarkable. IMPRESSION IMPRESSION: Changes of prior median sternotomy with no definite acute radiographic abnormality. Highway Research Engineer: ZITA Transcribe Date/Time: Dec 06 2023 11:58A Dictated by : TOÑO PABLO MD 2. Sore throat - ICD9: 462, ICD10: J02.9 - STREP A MOLECULAR (POC) - neg 3. Rhinosinusitis - ICD9: 473.9, ICD10: J32.9 - DOXYCYCLINE HYCLATE 100 MG TABLET Prescription instructions reviewed with patient as applicable. Potential red flag symptoms discussed with the patient. Reviewed appropriate action plan to take if red flag symptoms occur. Patient agreeable to treatment plan. Dayana Woodson APRN.[facility] 11-13-2023 Miscellaneous Notes Outside EP & Records are in Care Everywhere- ([facility]) Cardiac Interrogation- 10/16 EKG- 09/15 LUIS Echo- 09/15 Cardioversion- 09/15 TTE Echo- 10/16 Referral- 11/12/23 (Dr. Lissette Reyes) Marbella Acuña documented in this encounter [facility] 09-01-2023 Miscellaneous Notes Photos received via [employer] inbox and uploaded to patients Epic-Get Images. Pavel Quiñones 09/01/2023 Joanne Pollard (Photo) September 01, 2023 3:02 PM Outside medical records received from: [facility] Practice: Caity Matthews MD Diagnosis: SCC R Vertex Sent to: nurses for review and to determine appropriate appointment Outside records scanned into Epic: yes Color photos received and sent to [employer] documented in this encounter [facility] documented in this encounter [facility] Summary Purpose Family History No Family History Records Found Advance Directives No Advanced Directives Records Found Additional Source Comments Source Comments (unrecognize d section and content) In the event this informatio n is protected by the Federal Confidentiality of Alcohol and Drug Abuse Patient Records regulations: The Federal rules restrict any use of the information to criminally investigate or prosecute any alcohol or drug abuse patient.[facility] the event this information is protected by the Federal Confidentiality of Alcohol and Drug Abuse Patient Records regulations: The Federal rules restrict any use of the information to criminally investigate or prosecute any alcohol or drug abuse patient.[facility] the event this information is protected by the Federal Confidentiality of Alcohol and Drug Abuse Patient Records regulations: The Federal rules restrict any use of the information to criminally investigate or prosecute any alcohol or drug abuse patient.[facility] the event this information is protected by the Federal Confidentiality of Alcohol and Drug Abuse Patient Records regulations: The Federal rules restrict any use of the information to criminally investigate or prosecute any alcohol or drug abuse patient.[facility] the event this information is protected by the Federal Confidentiality of Alcohol and Drug Abuse Patient Records regulations: The Federal rules restrict any use of the information to criminally investigate or prosecute any alcohol or drug abuse patient.[facility] the event this information is protected by the Federal Confidentiality of Alcohol and Drug Abuse Patient Records regulations: The Federal rules restrict any use of the information to criminally investigate or prosecute any alcohol or drug abuse patient.[facility] the event this information is protected by the Federal Confidentiality of Alcohol and Drug Abuse Patient Records regulations: The Federal rules restrict any use of the information to criminally investigate or prosecute any alcohol or drug abuse patient.[facility] Reason for Visit (unrecogniz ed section and content) Reason Comments Received Outside Medical Records [facility]- Referral Reason Comments Appointment Reason Comments Received Outside Medical Records [place] [facility] Reason Comments Mohs Specialty Diagnoses / Procedures Referred By Payam freitas Referred To Contact Diagnoses Squamous cell carcinoma in situ (SCCIS) of scalp Procedures Radhika Cruz MD [address] [place] [address] Referral ID Status Reason Start Date Expiration Date Visits Requested Visits Authorized [id number] Ref Not Required PCP Requested Referral 3 09/03/2024 1 1 Care Teams (unrecognized sec tion and content) Lead Systems Architect Relationship Specialty Start Date End Date Rick Beltran MD [address] [id number] Primary Staff Physician Cardiology 12/24/23 Lead Systems Architect Relationship Specialty Start Date End Date Rick Beltran MD [address] [id number] Primary Staff Physician Cardiology 12/24/23 Lead Systems Architect Relationship Specialty Start Date End Date Rick Beltran MD [address] [id number] Primary Staff Physician Cardiology 12/24/23 Lead Systems Architect Relationship Specialty Start Date End Date Rick Beltran MD [address] [id number] Primary Staff Physician Cardiology 12/24/23 (unrecognized sect ion and content) No Status Records Found INFORMATION SOURCE (unrecogn ized section and content) FOR RECORDS PERTAINING TO PATIENTS WHO ARE OR HAVE BEEN ENROLLED IN A CHEMICAL DEPENDENCY/SUBSTANCEABUSE PROGRAM, SOME INFORMATION MAY BE OMITTED. This clinical summary was aggregated from multiple sources. Caution should be exercised in using it in the provision of clinical care. This summary normalizes information from multiple sources, and as a consequence, information in this document may materially change the coding, format and clinical context of patient data. In addition, data may be omitted in some cases. CLINICAL DECISIONS SHOULD BE BASED ON THE PRIMARY CLINICAL RECORDS. [facility]. provides no warranty or guarantee of the accuracy or completeness of information in this document.
[2024-02-09] MEDS: Lactated Ringers 1,000 ML 15 ML IV ×2 (07:05→09:16)
--- NOTE | 2024-02-09 08:00 | PCM.DC.SUM ---
Providers Primary Care Physician: Dr. Yoly Edouard MD Reason For Visit: Vocal Cord Injection left and direc Medications at Discharge Home Medications adalimumab 40 mg/0.8 mL subcutaneous syringe kit (Humira) 40 mg subcut QWEEK 01/29/24 allopurinol 300 mg tablet 300 mg PO DAILY 01/29/24 amiodarone 200 mg tablet 100 mg PO Q24H HEART 01/29/24 aspirin 81 mg tablet,delayed release (Adult Low Dose Aspirin) 81 mg PO DAILY 01/29/24 atorvastatin 20 mg tablet 20 mg PO DAILY 01/29/24 cholestyramine-aspartame 4 gram oral powder for susp in a packet (Cholestyramine Light) 1 ea PO BID PRN diarrhea 01/29/24 cyanocobalamin (vitamin B-12) 1,000 mcg/mL injection solution 1,000 mcg IM Q30D SUPPLEMENT 01/29/24 dutasteride 0.5 mg capsule 0.5 mg PO DAILY 01/29/24 furosemide 20 mg tablet 20 mg PO DAILY WATER PILL 01/29/24 isosorbide mononitrate 60 mg tablet,extended release 24 hr 60 mg PO DAILY HEART 01/29/24 levetiracetam 500 mg tablet 500 mg PO Q12H SEIZURES 01/29/24 metoprolol succinate 25 mg tablet,extended release 24 hr 25 mg PO DAILY 01/29/24 nortriptyline 25 mg capsule 25 mg PO QHS CROHNS 01/29/24 rivaroxaban 20 mg tablet (Xarelto) 20 mg PO Q24H AFIB 01/29/24 tamsulosin 0.4 mg capsule 0.4 mg PO Q24H 01/29/24 Weight / BMI Weight Weight: 73.7 kg Body Mass Index (BMI) 24.0 D/C Instructions Discharge Diet: No restrictions Discharge Activity: Return to Normal Activity Additional Instructions: Voice rest for 3 days Please Follow Up With: Huber Reyes MD When: 2-3 weeks Meaningful Use Info Meaningful Use Diagnoses (Choose all that apply): None applicable Discharge Plan Admission Attending Provider: Huber Reyes Primary Care Provider: Yoly Edouard Discharge Orders/Prescriptions Prescriptions: No Action Humira 40 mg/0.8 mL syringe kit 40 mg subcut QWEEK allopurinol 300 mg tablet 300 mg PO DAILY Patient Comments: TAKE 1 TABLET BY MOUTH EVERY DAY amiodarone 200 mg tablet 100 mg PO Q24H Patient Comments: TAKE 1/2 TABLET BY MOUTH EVERY DAY atorvastatin 20 mg tablet 20 mg PO DAILY Patient Comments: TAKE 1 TABLET BY MOUTH IN THE EVENING cholestyramine-aspartame [Cholestyramine Light] 4 gram powder in packet 1 ea PO BID PRN (Reason: diarrhea) Patient Comments: MIX AND DRINK 1 PACKET BY MOUTH TWICE DAILY WITH MEALS cyanocobalamin (vitamin B-12) 1,000 mcg/mL solution 1,000 mcg IM Q30D Patient Comments: INJECT 1ML UNDER THE SKIN ONCE A MONTH dutasteride 0.5 mg capsule 0.5 mg PO DAILY Patient Comments: TAKE 1 CAPSULE BY MOUTH EVERY DAY furosemide 20 mg tablet 20 mg PO DAILY isosorbide mononitrate 60 mg tablet extended release 24 hr 60 mg PO DAILY Patient Comments: TAKE 1 TABLET BY MOUTH EVERY DAY levetiracetam 500 mg tablet 500 mg PO Q12H Patient Comments: TAKE 1 TABLET BY MOUTH 2 TIMES A DAY metoprolol succinate 25 mg tablet extended release 24 hr 25 mg PO DAILY Patient Comments: TAKE 1 TABLET BY MOUTH EVERY DAY nortriptyline 25 mg capsule 25 mg PO QHS Patient Comments: TAKE 1 CAPSULE BY MOUTH AT BEDTIME Xarelto 20 mg tablet 20 mg PO Q24H Patient Comments: TAKE 1 TABLET BY MOUTH EVERY DAY WITH DINNER HOLDING PRIOR TO SURGERY, LAST DOSE WILL BE 02/04 tamsulosin 0.4 mg capsule 0.4 mg PO Q24H Patient Comments: TAKE 2 CAPSULES BY MOUTH EVERY DAY aspirin [Adult Low Dose Aspirin] 81 mg tablet,delayed release (DR/EC) 81 mg PO DAILY Patient Comments: PT HOLDING FOR SURGERY, LAST DOSE WILL BE 01/30/24 Referrals / Follow Up: Care Physician,No Primary [Non-Staff] - Disposition Disposition (needs filled in before D/C Order can be placed): Home, Self Care
--- NOTE | 2024-02-09 08:02 | PCM.OPRPT ---
Report of Operation Date of Procedure: 02/09/24 Pre-Operative Diagnosis: Left vocal cord paralysis Post-Operative Diagnosis: same Surgery/Procedure Performed:: MicroDirect laryngoscopy with injection of the left vocal cord Surgeon: Huber Reyes Type of Anesthesia: General Anesthesiologist: Thai Cash Estimated Blood Loss (mL): minimal Description of Procedure: The patient was taken to the operating room on 02/09/2024. He was placed in the supine position on the operating room table. He was given sufficient general endotracheal anesthesia. The table was turned 90 degrees in a clockwise fashion. The patient was draped sterilely. A gum guard was placed on the upper dentition. A Dedo laryngoscope inserted the patient's mouth and passed into the pharynx. The larynx was exposed. The patient was then placed in Lewy suspension on a [place] stand. The operating microscope was brought into use. I then inserted the needle into the left vocal cord just anterior and lateral to the vocal process. 1 cc of Prolaryn plus was injected into the left vocal cord. This provided excellent medialization of the cord. Hemostasis was achieved with adrenaline pledgets. Once hemostasis was achieved, all instrumentation was removed. The patient was then awoken and brought to recovery room in stable condition. Blood loss minimal, replacement none. Sponge, needle, and instrument count were correct at the end of the procedure.
[2024-02-09] MEDS: Epinephrine (1 mg/ml) 1 MG/ML VIAL (08:47)
== END 2024-02-09 11:31 | disposition home or self-care (01) ==
LOC: SDC 06:25 → AC 06:26
PROVIDERS: PCP Internal Medicine; Referring Provider Otolaryngology; Visit Provider Otolaryngology
PROC: 0CJS8ZZ Inspection of Larynx, Via Natural or Artificial Opening Endoscopic (ICD-10-PCS; CPT 31575; principal; 2024-02-09 07:50)
DX: J38.01 Paralysis of vocal cords and larynx, unilateral (principal); R49.0 Dysphonia; I25.2 Old myocardial infarction; M10.9 Gout, unspecified; E78.00 Pure hypercholesterolemia, unspecified; Z79.82 Long term (current) use of aspirin; Z79.899 Other long term (current) drug therapy; Z79.01 Long term (current) use of anticoagulants; Z86.718 Personal history of other venous thrombosis and embolism; Z95.1 Presence of aortocoronary bypass graft; Z87.891 Personal history of nicotine dependence
CPT/HCPCS: 31571; 00320; 93005; J7120; J2405

== ENCOUNTER 2024-05-14 10:30 | Outpatient (RCR) | payer MEDICARE, BC, SELFPAY ==
--- NOTE | 2024-02-27 12:55 | HP.PTEVAL ---
Patient's Visit Information Visit Information Visit Information: PAVEL SILVERMAN is a 73 year old M referred to Physical Therapy by Dr. Yoly Edouard MD with a diagnosis of WEAKNESS. Date of Evaluation: 02/27/24 Physical Therapist: Varun Peters PT, Cert MDT, OCS Visit Plan Frequency: 2x /Week Duration: 4 Weeks Plan: PT INTERVENTIONS AEROBIC EX'S ,FUNCTIONAL STRENGTHENING ,BLE STRENGTHENING AND PROGRESS TO GYM PROGRAM Subjective Subjective: This 73 y/o male presents to physical therapy with generalized weakness. Patient seen DR leblanc PT. Patient multiple comorbities to influence condition. Patient has difficulty with endurance ,stairs walking and extended walking/standing. Difficulty squatting ,bending ,no strength in legs for stairs carrying any thing.Patient denies falls . Patient does have pacemaker. Patient lives in 2 story home 2 steps stay on 1st floor . Tub/shower . Denies paresthesia/tingling . Denies pain.Patient sleeping good at night.Patient condition affect generalized function. Patient goals to increase strength. SOCIAL: VOCATION: retired Objective Objective: POSTURE: mild forward posture GAIT: reciprocal pattern STAIRS: one step at time with rails BALANCE: good- MMT: quads right 23,8 ,left 22.5 ,hamstrings right 18.8 ,left 19.4 ,hip flexion 28.7 right ,left 26.2 ,ankle 4/5 STAIRS: one step with rails FLEXABLITY : hamstrings min tight Balance/Special Test Scores Functional Gait Assessment Score: 28 % Disability: 6.6700 CATSIB Score (Max score 120 seconds): 105 Lower Extremity Functional Score: 41 30 Second Chair Rise Test Seconds: 8 Goals Goal 1:: Patient to be I with HEP and progress to gym program Goal Time Frame: 4-6 Weeks Goal 2:: Patient to improve 30sec sit-stand by 3-5 reps to improve functional strength Goal Time Frame: 4-6 Weeks Goal 3:: Patient to improve peak force quads/hams/hip by 5-10# to improve stairs Goal Time Frame: 4-6 Weeks Goal 4:: Patient to improve LFES score by 5 points to improve function Goal Time Frame: 4-6 Weeks Goal 5:: Patient to demonstrate 70% improvement with increase function and ADL's Goal Time Frame: 4-6 Weeks Rehabilitation Potential Rehabilitation Potential: Good Anticipated Interventions Patient/Client Instruction: Educate patient on: Condition and Plan of Care For the Purpose of:: To improve muscle performance and motor function, To improve ability to perform ADL's, To increase tolerance to activity/condition/position, To improve ability of physical actions for home/community/work/leisure, To increase flexibility/ROM, To improve endurance and To improve balance Therapeutic Exercise to Include: Strength training, Endurance training, Balance training and In an aquatic setting Comment: QUADS/HAMS/HIP For the Purpose of:: To improve muscle performance and motor function, To increase tolerance to activity/condition/position, To improve performance and independence with ADL's, To improve endurance and To improve balance Text: Thank you for the opportunity to evaluate your patient. For Medicare and Medicare HMO plans, please review the plan of care and approve it. It will need to be FAXED BACK to us at [phone] for Medicare purposes. For Medicare only, by signing this I certify the plan of care. Please let me know if there are questions or concerns regarding this plan of care. Physician Signature: Date:
--- NOTE | 2024-03-26 11:01 | HP.PTREVAL_ITS ---
Re-Evaluation Intro: Dr. Yoly Edouard MD, It has been my pleasure to treat PAVEL SILVERMAN over the last 7 visits for WEAKNESS. Please see the progress note below for an update on the physical therapy plan of care! Subjective Subjective: Equipment is helping a lot Enjoy HEP and gym ex's Major issues with balance and strength Objective Objective/Function: * Patient making great progress with increasing strength and goals thus goal's and continue to be appropriate and adjusted thus will benefit from skilled PT * POSTURE: mild forward posture GAIT: reciprocal pattern STAIRS: one step at time with rails BALANCE: good- MMT: quads right 50.6 ,left51.5 ,hamstrings right 28.8 ,left 29.4 ,hip flexion 32.9 right ,left 31.8 ,ankle 4/5 STAIRS: one step with rails FLEXABLITY : hamstrings min tight Plan Plan Plan: PT INTERVENTIONS AEROBIC EX'S ,FUNCTIONAL STRENGTHENING ,BLE STRENGTHENING AND PROGRESS TO GYM PROGRAM Balance/Gait/Functional tests Balance/Special Test Scores Functional Gait Assessment Score: 28 % Disability: 6.6700 CATSIB Score (Max score 120 seconds): 115 Lower Extremity Functional Score: 43 30 Second Chair Rise Test Seconds: 11 Goals Goals Goal 1:: Patient to be I with HEP and progress to gym program Goal Time Frame: 4-6 Weeks Goal Progress: Progressing Goal 2:: Patient to improve 30sec sit-stand by 3-5 reps to improve functional strength Goal Time Frame: 4-6 Weeks Goal Progress: Progressing Goal 3:: Patient to improve peak force quads/hams/hip by 5-10# to improve stairs( New Goal) Goal Time Frame: 4-6 Weeks Goal 4:: Patient to improve LFES score by 5 points to improve function Goal Time Frame: 4-6 Weeks Goal Progress: Progressing Goal 5:: Patient to demonstrate 70% improvement with increase function and ADL's Goal Time Frame: 4-6 Weeks Goal Progress: Progressing Anticipated Interventions Anticipated Interventions Patient/Client Instruction: Educate patient on: Condition and Plan of Care For the Purpose of:: To improve muscle performance and motor function, To improve ability to perform ADL's, To increase tolerance to activity/c ondition/position, To improve ability of physical actions for home/community/work/leisure, To increase flexibility/ROM, To improve endurance and To improve balance Therapeutic Exercise to Include: Strength training, Endurance training, Balance training and In an aquatic setting Comment: QUADS/HAMS/HIP For the Purpose of:: To improve muscle performance and motor function, To increase tolerance to activity/condition/position, To improve performance and independence with ADL's, To improve endurance and To improve balance Re-Evaluation Ending Re-evaluation ending: Please do not hesitate to contact me at [phone] by phone or if you have questions or concerns regarding this new plan of care! Sincerely, Varun Peters, PT, Cert MDT, OCS
--- NOTE | 2024-05-14 11:08 | HP.PTDCSUM ---
Discharge Summary D/C summary: It has been my pleasure to treat PAVEL SILVERMAN referred by Dr. Yoly Edouard MD, with the diagnosis of WEAKNESS for a total of 19 visit(s). Discharge Date: 05/14/24 Please see the following information for a summary of their discharge status. Subjective Subjective: Doing well overall Some difficulty with stiffness and balance overall strength Overall Improvement % Improvement: 50 Objective Objective/Function: POSTURE: mild forward posture GAIT: reciprocal pattern STAIRS: one step at time with rails BALANCE: good- MMT: quads right 50.6 ,left51.5 ,hamstrings right 28.8 ,left 29.4 ,hip .5 right ,lef 35.8 ,ankle 4/5 STAIRS: one step with rails FLEXABLITY : hamstrings min tight Goals Goal 1:: Patient to be I with HEP and progress to gym program Goal Progress: Progressing Goal 2:: Patient to improve 30sec sit-stand by 3-5 reps to improve functional strength Goal Progress: Goal Met Goal 3:: Patient to improve peak force quads/hams/hip by 5-10# to improve stairs( New Goal) Goal Progress: Goal Met Goal 4:: Patient to improve LFES score by 5 points to improve function Goal Progress: Goal Met Goal 5:: Patient to demonstrate 70% improvement with increase function and ADL's Goal Progress: Goal Met Plan Plan: D/C TO HEP AND GYM D/C Information Discharge Comments: HEP AND GYM d/c sentence: If there are questions or concerns regarding this patient's physical therapy, please feel free to call me at [phone]. Thank you for the referral of this patient. Sincerely, Varun Peters, PT, Cert MDT, OCS Balance/Gait/Functional tests Balance/Special Test Scores Functional Gait Assessment Score: 28 % Disability: 6.6700 CATSIB Score (Max score 120 seconds): 115 Lower Extremity Functional Score: 46 30 Second Chair Rise Test Seconds: 11 Improvement % Improvement: 50
== END 2024-05-14 13:28 | disposition home or self-care (01) ==
LOC: PT 10:30
PROVIDERS: PCP Internal Medicine; Referring Provider Internal Medicine; Visit Provider Internal Medicine
DX: R53.1 Weakness (principal)
CPT/HCPCS: 97110; 97162; 97530

== ENCOUNTER → 2024-08-05 | Outpatient (CLI) | payer MEDICARE, BC, SELFPAY ==
--- NOTE | 2024-08-05 08:15 | RAD_ITS ---
STUDY: X-RAY - ESOPHAGUS (BARIUM SWALLOW) WITH FLUOROSCOPY REASON FOR EXAM: Male, 74 years old. DYSPHAGIA TECHNIQUE: 66 fluoroscopic view(s) of the esophagus were obtained following swallowing of barium. FLUOROSCOPY TIME (if supplied): (1 minute and 3 seconds) minutes/seconds. 5.5 mGy COMPARISON: None. FINDINGS: There is no demonstrated esophageal foreign body. There is no demonstrated stricture or mucosal abnormality. Normal gastroesophageal junction, without a demonstrated hiatal hernia. The patient ingested a 12 mm tablet of barium. There is a delay in the passage of the 12 mm tablet of barium into the stomach. There is atherosclerotic tortuosity of the aortic arch and descending thoracic aorta. Normal visualized pulmonary parenchyma. There are diffuse degenerative changes of the visualized thoracic spine. RAD/Esophagus Dual Contrast IMPRESSION: No anatomical abnormality is seen. There is a delay in the passage of the 12 mm tablet of barium into the stomach. Electronically Signed: Thom Garcia MD at 9:06 EDT ,
== END | disposition home or self-care (01) ==
PROVIDERS: PCP Internal Medicine; Referring Provider Otolaryngology; Visit Provider Otolaryngology
DX: R13.10 Dysphagia, unspecified (principal)
CPT/HCPCS: 74221

== ENCOUNTER → 2024-08-09 | Outpatient (CLI) | payer MEDICARE, BC, SELFPAY | END | disposition home or self-care (01) | PROVIDERS: PCP Internal Medicine; Referring Provider Nurse Practitioner Family; Visit Provider Nurse Practitioner Family | DX: R30.0 Dysuria (principal) | CPT/HCPCS: 87086 ==

== ENCOUNTER 2024-10-29 15:19 | Outpatient (CLI) | payer MEDICARE, BC, SELFPAY | END 2024-10-29 23:59 | disposition home or self-care (01) | LOC: MEDOUTP 15:22 | PROVIDERS: PCP Internal Medicine; Visit Provider Physician Assistant Surgical | DX: R30.0 Dysuria (principal) | CPT/HCPCS: 87077; 87086; 87088; 87186 ==

== ENCOUNTER → 2024-11-11 | Outpatient (CLI) | payer MEDICARE, BC, SELFPAY ==
[2024-11-11 14:20] LABS: Bacteria 0 SEEN /hpf (None Seen); Mucous, Urine 0 SEEN /hpf (<or=2+); Red Blood Cells-Urine 0 SEEN /hpf (0-5)
[2024-11-11 15:27] LABS: Color, Urine Yellow (Yellow); Glucose, Dipstick Normal (Normal); Ketone-Dipstick Negative (Negative); Leukocyte Esterase-Dipstick Negative /ul (Negative); Nitrite-Dipstick Negative (Negative); Occult Blood-Urine Negative /ul (Negative); Protein-Dipstick Negative (Negative); Specific Gravity, Urine 1.015 (1.002-1.030); Urine Bilirubin Dipstick Negative (Negative); Urine Clarity Clear (Clear); Urine Urobilinogen Normal (Normal)
[2024-11-11 15:47] LABS: Hyaline Cast 0-5 SEEN /lpf (0-5); Squamous Epithelial Cells - UA 0-5 SEEN /hpf (0-5); White Blood Cells 0-5 SEEN /hpf (0-5)
== END | disposition home or self-care (01) ==
LOC: BIMLAB 14:19
PROVIDERS: PCP Internal Medicine; Referring Provider Internal Medicine; Visit Provider Internal Medicine
DX: N30.00 Acute cystitis without hematuria (principal)
CPT/HCPCS: 81001; 87086

== ENCOUNTER → 2024-11-23 | Outpatient (CLI) | payer MEDICARE, BC, SELFPAY ==
[2024-11-23 10:56] LABS: PSA,Total - Annual Screen 0.48 ng/mL (0.00-4.00)
== END | disposition home or self-care (01) ==
LOC: LAB 10:16
PROVIDERS: PCP Internal Medicine; Referring Provider Nurse Practitioner; Visit Provider Nurse Practitioner
DX: Z12.5 Encounter for screening for malignant neoplasm of prostate (principal)
CPT/HCPCS: 36415; 84153; G0103

== ENCOUNTER → 2025-04-04 | Outpatient (CLI) | payer MEDICARE, BC, SELFPAY | END | disposition home or self-care (01) | LOC: LABSPEC 16:56 | PROVIDERS: PCP Internal Medicine; Referring Provider Urology; Visit Provider Urology | DX: N30.01 Acute cystitis with hematuria (principal) | CPT/HCPCS: 87077; 87086; 87088; 87186 ==

== ENCOUNTER 2025-05-19 10:30 | Outpatient (RCR) | payer MEDICARE, BC, SELFPAY ==
--- NOTE | 2025-01-17 13:05 | HP.PTEVAL ---
Patient's Visit Information Visit Information Visit Information: PAVEL SILVERMAN is a 74 year old M referred to Physical Therapy by ISIDRO HESS with a diagnosis of INCLUSION BODY MYOSITIS. Date of Evaluation: 01/17/25 Physical Therapist: Varun Peters, PT, Cert MDT, OCS Visit Plan Frequency: 2x /Week Duration: 4 Weeks Plan: PT INTERVENTIONS PROGRESSIVE STRENGTHENING BLE ,FUNCTIONAL STRENGTH ,ENDURANCE PROGRAM AND BALANCE TRAINING Subjective Subjective: This 74 y/o male presents to physical therapy with weakness and fatigue. Patient has developed progressive weakness and noticed problems with swallowing. 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 Patient has had blood and nerve conduction test.Patient has noticed with weakness with stairs and balance.Unable to stand w/o BUE Patient has no SOB. Patient is unable to squat and kneel and difficulty with stairs.Patient also has regulator mechanic weakness. Patient sleeping okay. Patient has paresthesia/tingling in feet.Patient condition affects QOL and function. Patient goals to maintain strength. SOCIAL: VOCATION: retired Objective Objective: POSTURE: mild forward posture GAIT: reciprocal pattern knee valgus mild forward posture slow giorgi PALPATION: unremarkable STAIRS: onse steps at time FLEXABILITY: hamstrings min tight MMT:( peak force) left 22.8 ,right 23.4,hipo flexion left 17.8 ,right 17.6 ,hamstrings left 14.3 ,right 15 .3 Special Tests L/S Slump test left side: Negative L/S Slump test right side: Negative L/S Left Straight Leg Raise: Negative L/S Right Straight Leg Raise: Negative Balance/Special Test Scores CATSIB Score (Max score 120 seconds): 112 Lower Extremity Functional Score: 35 30 Second Chair Rise Test Seconds: 0 Goals Goal 1:: Patient to be I with HEP for strengthening Goal Time Frame: 4-6 Weeks Goal 2:: Patient to improve LFES by 5-10 points to improve function Goal Time Frame: 4-6 Weeks Goal 3:: Patient to peak force quads/hams/hip by 5-10 # strength to improve function Goal Time Frame: 4-6 Weeks Goal 4:: Patient to demonstrate 50% improvement to improve function Goal Time Frame: 4-6 Weeks Rehabilitation Potential Physical Therapy Diagnosis: Patient has generalized weakness and weakness in legs affects ADLS ,stairs thus benefit from skilled PT Rehabilitation Potential: Good Anticipated Interventions Patient/Client Instruction: Educate patient on: Condition and Plan of Care For the Purpose of:: To decrease pain, To improve muscle performance and motor function, To improve ability to perform ADL's, To increase tolerance to activity/condition/position, To improve ability of physical actions for home/community/work/leisure, To improve health of tissue, To decrease soft tissue restriction, To increase flexibility/ROM, To improve endurance, To improve balance and To improve tolerance to ADL's Therapeutic Exercise to Include: Strength training, Endurance training, Balance training, Flexibilty training and Gait and locomotor training Comment: BLE For the Purpose of:: To decrease pain, To improve muscle performance and motor function, To improve ability to perform ADL's, To increase tolerance to activity/condition/position, To improve ability of physical actions for home/community/work/leisure, To improve health of tissue, To decrease soft tissue restriction, To improve endurance, To improve balance and To improve tolerance to ADL's Text: Thank you for the opportunity to evaluate your patient. For Medicare and Medicare HMO plans, please review the plan of care and approve it. It will need to be FAXED BACK to us at [phone] for Medicare purposes. For Medicare only, by signing this I certify the plan of care. Please let me know if there are questions or concerns regarding this plan of care. Physician Signature: Date:
--- NOTE | 2025-02-24 10:45 | HP.PTREVAL_ITS ---
Re-Evaluation Intro: SHAHRAM HESS, It has been my pleasure to treat PAVEL SILVERMAN over the last 9 visits for INCLUSION BODY MYOSITIS. Please see the progress note below for an update on the physical therapy plan of care! Subjective Subjective: PT is helping a lot especially with balance Objective Objective/Function: * Patient progressing with strength and function thus will benefit from skilled PT with goals appropriate and adjusted* POSTURE: mild forward posture GAIT: reciprocal pattern knee valgus mild forward posture PALPATION: unremarkable STAIRS: onse steps at time FLEXABILITY: hamstrings min tight MMT:( peak force) left 42.8 ,right 36.9,hip flexion left 25.8 ,right 25.9 ,hamstrings left 18.3 ,right 17 .3 Plan Plan Plan: PT INTERVENTIONS PROGRESSIVE STRENGTHENING BLE ,FUNCTIONAL STRENGTH ,ENDURANCE PROGRAM AND BALANCE TRAINING Balance/Gait/Functional tests Balance/Special Test Scores CATSIB Score (Max score 120 seconds): 113 Lower Extremity Functional Score: 35 30 Second Chair Rise Test Seconds: 0 Goals Goals Goal 1:: Patient to be I with HEP for strengthening Goal Time Frame: 4-6 Weeks Goal Progress: Progressing Goal 2:: Patient to improve LFES by 5-10 points to improve function Goal Time Frame: 4-6 Weeks Goal Progress: Progressing Goal 3:: Patient to peak force quads/hams/hip by 5-10 # strength to improve function( NEW GOALS) Goal Time Frame: 4-6 Weeks Goal 4:: Patient to demonstrate 50% improvement to improve function Goal Time Frame: 4-6 Weeks Goal Progress: Progressing Anticipated Interventions Anticipated Interventions Patient/Client Instruction: Educate patient on: Condition and Plan of Care For the Purpose of:: To decrease pain, To improve muscle performance and motor function, To improve ability to perform ADL's, To increase tolerance to activ ity/condition/position, To improve ability of physical actions for home/community/work/leisure, To improve health of tissue, To decrease soft tissue restriction, To increase flexibility/ROM, To improve endurance, To improve balance and To improve tolerance to ADL's Therapeutic Exercise to Include: Strength training, Endurance training, Balance training, Flexibilty training and Gait and locomotor training Comment: BLE For the Purpose of:: To decrease pain, To improve muscle performance and motor function, To improve ability to perform ADL's, To increase tolerance to activity/condition/position, To improve ability of physical actions for home/community/work/leisure, To improve health of tissue, To decrease soft tissue restriction, To improve endurance, To improve balance and To improve tolerance to ADL's Re-Evaluation Ending Re-evaluation ending: Please do not hesitate to contact me at [phone] by phone or if you have questions or concerns regarding this new plan of care! Sincerely, Varun Peters, PT, Cert MDT, OCS
--- NOTE | 2025-03-24 11:24 | HP.PTDCSUM_ITS ---
Discharge Summary D/C summary: It has been my pleasure to treat PAVEL SILVERMAN referred by SHAHRAM HESS, with the diagnosis of INCLUSION BODY MYOSITIS for a total of 16 visit(s). Discharge Date: Please see the following information for a summary of their discharge status. Subjective Subjective: Patient has bladder problems urinating problem -spasms Biggest progress with balance Overall Improvement % Improvement: 40 Objective Objective/Function: * Patient progressing with strength and function thus will benefit from skilled PT with goals appropriate and adjusted* POSTURE: mild forward posture GAIT: reciprocal pattern knee valgus mild forward posture PALPATION: unremarkable STAIRS: onse steps at time FLEXABILITY: hamstrings min tight MMT:( peak force) left 42.8 ,right 36.9,hip flexion left 36.9 ,right 33.9 ,hamstrings left 29.7 ,right 26.2 Goals Goal 1:: Patient to be I with HEP for strengthening Goal Progress: Progressing Goal 2:: Patient to improve LFES by 5-10 points to improve function Goal Progress: Progressing Goal 3:: Patient to peak force quads/hams/hip by 5-10 # strength to improve function( NEW GOALS) Goal 4:: Patient to demonstrate 50% improvement to improve function Goal Progress: Progressing Plan Plan: CONTINUE WITH POC PT INTERVENTIONS PROGRESSIVE STRENGTHENING BLE ,FUNCTION AL STRENGTH ,ENDURANCE PROGRAM AND BALANCE TRAINING D/C Information d/c sentence: If there are questions or concerns regarding this patient's physical therapy, please feel free to call me at [phone]. Thank you for the referral of this patient. Sincerely, Varun Peters, PT, Cert MDT, OCS Balance/Gait/Functional tests Balance/Special Test Scores CATSIB Score (Max score 120 seconds): 113 Lower Extremity Functional Score: 35 30 Second Chair Rise Test Seconds: 0 Improvement % Improvement: 40
--- NOTE | 2025-03-28 16:15 | HP.PTREVAL ---
Re-Evaluation Intro: SHAHRAM HESS, It has been my pleasure to treat PAVEL SILVERMAN over the last 16 visits for INCLUSION BODY MYOSITIS. Please see the progress note below for an update on the physical therapy plan of care! Subjective Subjective: Patient has bladder problems urinating problem -spasms Biggest progress with balance Objective Objective/Function: * Patient progressing with strength and function thus will benefit from skilled PT with goals appropriate and adjusted* POSTURE: mild forward posture GAIT: reciprocal pattern knee valgus mild forward posture PALPATION: unremarkable STAIRS: onse steps at time FLEXABILITY: hamstrings min tight MMT:( peak force) left 42.8 ,right 36.9,hip flexion left 36.9 ,right 33.9 ,hamstrings left 29.7 ,right 26.2 Plan Plan Plan: CONTINUE WITH POC PT INTERVENTIONS PROGRESSIVE STRENGTHENING BLE ,FUNCTIONAL STRENGTH ,ENDURANCE PROGRAM AND BALANCE TRAINING Balance/Gait/Functional tests Balance/Special Test Scores CATSIB Score (Max score 120 seconds): 113 Lower Extremity Functional Score: 35 30 Second Chair Rise Test Seconds: 0 Goals Goals Goal 1:: Patient to be I with HEP for strengthening Goal Time Frame: 4-6 Weeks Goal Progress: Progressing Goal 2:: Patient to improve LFES by 5-10 points to improve function Goal Time Frame: 4-6 Weeks Goal Progress: Progressing Goal 3:: Patient to peak force quads/hams/hip by 5-10 # strength to improve function( NEW GOALS) Goal Time Frame: 4-6 Weeks Goal 4:: Patient to demonstrate 50% improvement to improve function Goal Time Frame: 4-6 Weeks Goal Progress: Progressing Anticipated Interventions Anticipated Interventions Patient/Client Instruction: Educate patient on: Condition and Plan of Care For the Purpose of:: To decrease pain, To improve muscle performance and motor function, To improve ability to perform ADL's, To increase tolerance to activity/condition/position, To improve ability of physical actions for home/community/work/leisure, To improve health of tissue, To decrease soft tissue restriction, To increase flexibility/ROM, To improve endurance, To improve balance and To improve tolerance to ADL's Therapeutic Exercise to Include: Strength training, Endurance training, Balance training, Flexibilty training and Gait and locomotor training Comment: BLE For the Purpose of:: To decrease pain, To improve muscle performance and motor function, To improve ability to perform ADL's, To increase tolerance to activity/condition/position, To improve ability of physical actions for home/community/work/leisure, To improve health of tissue, To decrease soft tissue restriction, To improve endurance, To improve balance and To improve tolerance to ADL's Re-Evaluation Ending Re-evaluation ending: Please do not hesitate to contact me at [phone] by phone or if you have questions or concerns regarding this new plan of care! Sincerely, Varun Peters, PT, Cert MDT, OCS
--- NOTE | 2025-04-21 12:47 | HP.PTREVAL_ITS ---
Re-Evaluation Intro: SHAHRAM HESS, It has been my pleasure to treat PAVEL SILVERMAN over the last 21 visits for INCLUSION BODY MYOSITIS. Please see the progress note below for an update on the physical therapy plan of care! Subjective Subjective: Patient pneumonia aspiration so had t miss some appointments Objective Objective/Function: Patient progressing with strength and function thus will benefit from skilled PT due to aspiration pneumonia so is weaker with goals appropriate* POSTURE: mild forward posture GAIT: reciprocal pattern knee valgus mild forward posture PALPATION: unremarkable STAIRS: onse steps at time FLEXABILITY: hamstrings min tight MMT:( peak force) left 42.8 ,right 38.9,hip flexion left 35.9 ,right 32.0 ,hamstrings left 29.5 ,right 26.1 Plan Plan Plan: CONTINUE WITH POC 1x week PT INTERVENTIONS PROGRESSIVE STRENGTHENING BLE, FUNCTIONAL STRENGTH, ENDURANCE PROGRAM AND BALANCE TRAINING Balance/Gait/Functional tests Balance/Special Test Scores CATSIB Score (Max score 120 seconds): 113 Lower Extremity Functional Score: 35 30 Second Chair Rise Test Seconds: 0 Goals Goals Goal 1:: Patient to be I with HEP for strengthening Goal Time Frame: 4-6 Weeks Goal Progress: Progressing Goal 2:: Patient to improve LFES by 5-10 points to improve function Goal Time Frame: 4-6 Weeks Goal Progress: Progressing Goal 3:: Patient to peak force quads/hams/hip by 5-10 # strength to improve function( NEW GOALS) Goal Time Frame: 4-6 Weeks Goal 4:: Patient to demonstrate 50% improvement to improve function Goal Time Frame: 4-6 Weeks Goal Progress: Progressing Anticipated Interventions Anticipated Interventions Patient/Client Instruction: Educate patient on: Condition and Plan of Care For the Purpose of:: To decrease pain, To improve muscle performance and motor function, To improve ability to perform ADL's, To increase tolerance to activity/condition/position, To improve ability of physical actions for home/community/work/leisure, To improve health of tissue, To decrease soft tissue restriction, To increase flexibility/ROM, To improve endurance, To improve balance and To improve tolerance to ADL's Therapeutic Exercise to Include: Strength training, Endurance training, Balance training, Flexibilty training and Gait and locomotor training Comment: BLE For the Purpose of:: To decrease pain, To improve muscle performance and motor function, To improve ability to perform ADL's, To increase tolerance to activity/condition/position, To improve ability of physical actions for adolfo e/community/work/leisure, To improve health of tissue, To decrease soft tissue restriction, To improve endurance, To improve balance and To improve tolerance to ADL's Re-Evaluation Ending Re-evaluation ending: Please do not hesitate to contact me at [phone] by phone or if you have questions or concerns regarding this new plan of care! Sincerely, Varun Peters, PT, Cert MDT, OCS
--- NOTE | 2025-05-19 11:20 | HP.PTDCSUM ---
Discharge Summary D/C summary: It has been my pleasure to treat PAVEL SILVERMAN referred by SHAHRAM HESS, with the diagnosis of INCLUSION BODY MYOSITIS for a total of 25 visit(s). Discharge Date: 05/19/25 Please see the following information for a summary of their discharge status. Subjective Subjective: Doing better Overall Improvement % Improvement: 60 Objective Objective/Function: POSTURE: mild forward posture GAIT: reciprocal pattern knee valgus mild forward posture PALPATION: unremarkable STAIRS: one steps at time FLEXABILITY: hamstrings min tight MMT:( peak force) left 42.8 ,right 40.9,hip flexion ,guads left 39.9 ,right 39.0 ,hamstrings left 29.5 ,right 26.1 Goals Goal 1:: Patient to be I with HEP for strengthening Goal Progress: Goal Met Goal 2:: Patient to improve LFES by 5-10 points to improve function Goal Progress: Goal Met Goal 3:: Patient to peak force quads/hams/hip by 5-10 # strength to improve function( NEW GOALS) Goal Progress: Goal Met Goal 4:: Patient to demonstrate 50% improvement to improve function Goal Progress: Goal Met Plan Plan: D/C TO RTD D/C Information Discharge Comments: hep d/c sentence: If there are questions or concerns regarding this patient's physical therapy, please feel free to call me at [phone]. Thank you for the referral of this patient. Sincerely, Varun Peters, PT, Cert MDT, OCS Balance/Gait/Functional tests Balance/Special Test Scores CATSIB Score (Max score 120 seconds): 113 Lower Extremity Functional Score: 53 30 Second Chair Rise Test Seconds: 0 Improvement % Improvement: 60
== END 2025-05-19 19:00 | disposition home or self-care (01) ==
LOC: PT 10:30
PROVIDERS: PCP Internal Medicine
DX: G72.41 Inclusion body myositis [IBM] (principal)
CPT/HCPCS: 97110; 97162; 97530